=== PATIENT | female | born 1995 | race Two or more races ===

== ENCOUNTER 2022-10-27 18:59 | Outpatient (CLI) | payer OTHER ==
[2022-10-27] MEDS ORDERED: PRENATAL 19 TA1 EAC2 PO (21:44)
== END 2022-10-28 11:25 | disposition home or self-care (01) ==
LOC: OBS/DEL 18:59
PROVIDERS: ATTEND Specialist
DX: O23.42 Unspecified infection of urinary tract in pregnancy, second trimester (principal); N39.0 Urinary tract infection, site not specified; Z3A.21 21 weeks gestation of pregnancy

== ENCOUNTER → 2022-10-27 | Emergency (ER) | payer OTHER ==
[~2022-10-27] VITALS: Ht 157.5 cm; Wt 84.4 kg
[~2022-10-27] MED LIST: PRENATAL 19 TA1 EAC2 PO
== END | disposition left against medical advice (07) ==
LOC: ER 16:24
DX: Z53.21 Procedure and treatment not carried out due to patient leaving prior to being seen by health care provider (principal)

== ENCOUNTER 2023-02-22 09:27 | Inpatient (IN) | payer OTHER ==
[~2023-02-22] VITALS: Ht 152.4 cm; Wt 3.2 kg
[2023-03-05] MEDS ORDERED: IBUPROFEN800 MG PO (08:05)
== END 2023-03-05 09:49 | disposition home or self-care (01) | DRG 785 ==
LOC: OB/GYN 03-02 07:00 → O/R 03-02 07:20 → OB/GYN 03-02 08:00
PROVIDERS: ADMIT Specialist; ATTEND Specialist
PROC: 0UB70ZZ Excision of Bilateral Fallopian Tubes, Open Approach (ICD-10-PCS; 2023-03-02)
PROC: 4A1HXCZ Monitoring of Products of Conception, Cardiac Rate, External Approach (ICD-10-PCS; 2023-03-02)
PROC: 10D00Z1 Extraction of Products of Conception, Low, Open Approach (ICD-10-PCS; principal; 2023-03-02 07:00)
DX: O34.211 Maternal care for low transverse scar from previous cesarean delivery (principal); Z3A.39 39 weeks gestation of pregnancy; Z37.0 Single live birth; Z20.822 Contact with and (suspected) exposure to COVID-19; Z30.2 Encounter for sterilization; O99.824 Streptococcus B carrier state complicating childbirth